=== PATIENT | female | born 1970 | race Asian ===

== ENCOUNTER 2019-02-17 08:03 | Outpatient (CLI) | payer OTHER ==
--- NOTE | 2019-02-17 10:19 | Ultrasound Report ---
TRANSABDOMINAL AND TRANSVAGINAL PELVIC ULTRASOUND: 02/17/19 08:03:00 CLINICAL: Pelvic and perineal pain. FINDINGS: Transabdominal and transvaginal pelvic ultrasound demonstrated abscess of the uterus and a normal vaginal cuff. Several small follicles in the right ovary. The right ovary measures 3.5 x 1.3 x 2.5cm. A cystic structure adjacent to the right ovary is consistent with a hydrosalpinx and it measures 4.0 cm in maximum dimension. No other adnexal mass. The left ovary contains several small follicles plus a 3.9 cm anechoic cyst with a smooth thin wall. The left ovary measures 5.4 x 3.6 x 4.8 cm. Minimal free pelvic fluid. Normal urinary bladder. IMPRESSION: 1. A right hydrosalpinx measuring 4 cm maximum dimension. 2. Normal right ovary. 3. A 3.9 cm cyst of the left ovary with benign morphology.
== END 2019-02-17 08:04 | disposition home or self-care (01) ==
LOC: SPVWC 08:03
PROVIDERS: ATTEND Family Medicine
DX: N83.202 Unspecified ovarian cyst, left side (principal)
CPT/HCPCS: 76830; 76856